=== PATIENT | female | born 1950 | race Caucasian/White ===

== ENCOUNTER → 2016-05-07 | Outpatient (CLI) | payer OTHER, MEDICARE ==
[~2016-05-07] MED LIST: AMLO-110 PO; ATOR10TA88 PO; ATV5 PO; FAMO20TA11 PO; FLUC10SU PO; FNTTP75 TD; LISI5TAB PO; METO-157 PO; MISCCAP80 PO; MULT-1027 PO; OPTIRAY 320 IV PRN; POLY335019 PO; PROC1TAB5 PO; THIA100T11 PO; morphine sulfate
--- NOTE | 2016-05-07 13:13 | DIAGNOSTIC IMAGING REPORT ---
ULTRASOUND OF THE CAROTID ARTERIES CLINICAL HISTORY: Head and neck cancer. COMPARISON STUDY: CT scan of the neck dated 01/21/2016. TECHNIQUE: Real-time, grayscale, and color Doppler sonography of the carotid arteries is performed. Images are reviewed in the transverse and longitudinal planes. FINDINGS: Blood pressures were not assessed. The carotid arteries are patent bilaterally and demonstrate antegrade flow. There is no significant atherosclerotic plaque seen. Normal doppler arterial waveforms are seen throughout. Velocity measurements are listed below. Common carotid peak systolic velocity (cm/sec): RIGHT: 74 LEFT: 83 ICA proximal peak systolic velocity (cm/sec): RIGHT: 80 LEFT: 71 ICA mid peak systolic velocity (cm/sec): RIGHT: 90 LEFT: 85 ICA distal peak systolic velocity (cm/sec): RIGHT: 87 LEFT: 94 ICA/CC peak systolic ratio: RIGHT: 1.2 LEFT: 1.1 Antegrade flow was shown in the vertebral arteries. The external carotid arteries are patent. IMPRESSION: 1. There is no sonographic evidence of hemodynamically significant stenosis in the right or left carotid arterial system. 2. Antegrade flow is shown in the vertebral arteries. Electronically signed by: Ayo Lott M.D. 05/07/2016 1:12 PM Dictated Date/Time: 05/07/2016 1:10 PM
--- NOTE | 2016-05-07 13:38 | DIAGNOSTIC IMAGING REPORT ---
CT HEAD COMBO CT DOSE: 1512.20 mGy.cm TECHNIQUE: Noncontrast images were obtained through the brain in the axial plane. The sequence was repeated following administration of 119 Optiray 320. HISTORY: TONGUE CA. NECK MASS COMPARISON: None. FINDINGS: No intra or extra-axial mass lesions are visualized. There is no CT evidence of acute cortical infarction. There is no evidence of midline shift. There is no acute hemorrhage. No calvarial fractures are visualized. There are minimal white matter hypodensities likely on a small vessel basis. There is no evidence of pathologic ventricular dilatation. There is no evidence of acute sinusitis Postcontrast images reveal no pathologically enhancing masses. IMPRESSION: No acute intracranial findings. No CT evidence of intracranial metastasis. Electronically signed by: Jay Han M.D. 05/07/2016 1:37 PM Dictated Date/Time: 05/07/2016 1:35 PM
--- NOTE | 2016-05-07 14:20 | DIAGNOSTIC IMAGING REPORT ---
CT SCAN OF THE NECK WITH IV CONTRAST CLINICAL HISTORY: Tongue cancer. Neck mass. COMPARISON STUDY: CT scan of the neck dated 01/21/2016. TECHNIQUE: Following the IV administration of 119 cc of Optiray 320, CT scan of the soft tissues of the neck was performed from the skull base to the upper chest. Images are reviewed in the axial, sagittal, and coronal planes. IV contrast was administered without complication. FINDINGS: Soft tissues and pharynx: Numerous surgical clips are present at the floor of the mouth. There is a large and heterogeneous mass lesion with foci of central necrosis identified in the left neck. There are numerous surgical clips in this region indicating previous neck dissection. The mass lesion extends from the level of C2 to the level of C5, and is located posterior to the body and angle of the mandible. There is extensive infiltration of the left-sided parapharyngeal fat with mild mass effect on the left pharyngeal soft tissues. This effaces the left vallecula. Abnormal soft tissue seen infiltrating along the course of the left sternocleidomastoid muscle. This significantly narrows the left internal jugular vein as image #287. The airway is widely patent. The epiglottis is normal. The vocal cords are symmetric. The prevertebral/retropharyngeal soft tissues are within normal limits. Lymphadenopathy: There is a large left-sided neck mass as above. No additional discrete surrounding cervical lymph nodes are identified. Thyroid: Normal in size and attenuation. Salivary glands: Surgical clips are noted in the left parotid gland. The parotid glands and left submandibular gland appear hyperemic. The right submandibular gland is not visualized. Brain parenchyma: The visualized brain parenchyma at the skull base is normal in appearance. Vascular structures: There is atherosclerotic calcification of the visualized thoracic aorta. The carotid arteries and right jugular veins are widely patent bilaterally. Skeletal structures: The skeletal structures are osteopenic. Imaged portions of the calvarium at the skull base are within normal limits. The cervical spine appears intact noting mild multilevel cervical spondylosis. No lytic or blastic lesions are seen. Orbits: The bony orbits are intact. Orbital contents are within normal limits. Sinuses and mastoids: There is trace mucosal thickening within the left maxillary antrum. The remaining paranasal sinuses are clear. The mastoid air cells are well pneumatized. Upper chest: Emphysematous change is present in the upper lobes. There is biapical scarring. Imaged upper lobe lung parenchyma is otherwise clear. Numerous surgical clips are seen in the superior mediastinum. IMPRESSION: 1. There are postoperative changes consistent with extensive left-sided neck dissection, as well as resection at the floor of the mouth. 2. There is a large and heterogeneous soft tissue mass with central necrosis identified in the left neck as detailed above. This infiltrates the left paravertebral soft tissues and causes mass effect on the pharynx. This is consistent with metastatic disease. The airway is patent. 3. Abnormal soft tissue is seen infiltrating along the course of the left sternocleidomastoid muscle, also likely representing metastasis.. 4. There is encasement with significant narrowing of the left internal jugular vein. The vessel remains patent. 5. No definite lesions are identified within the soft tissues of the right neck. 6. Advanced emphysema. Electronically signed by: Ayo Lott M.D. 05/07/2016 2:19 PM Dictated Date/Time: 05/07/2016 2:04 PM
== END | disposition home or self-care (01) ==
LOC: C.ULTR 12:13
PROVIDERS: ATTEND Radiology Radiation Oncology
DX: C02.3 Malignant neoplasm of anterior two-thirds of tongue, part unspecified (principal); R22.1 Localized swelling, mass and lump, neck; J43.9 Emphysema, unspecified

== ENCOUNTER → 2016-05-13 | Outpatient (CLI) | payer OTHER, MEDICARE ==
[~2016-05-13] MED LIST changes: -OPTIRAY 320 IV PRN
--- NOTE | 2016-05-13 13:55 | Discharge Instructions ---
Discharge Instructions Procedure Procedure Date: May 13, 2016. Reason for visit: L Neck Mass,Tongue Ca. Discharge Discharge Date: May 13, 2016. Discharge Diagnosis: same Instructions Activity Recommendations: No limitations Return to School/Work: no limitations Recommended Home Diet: Resume Previous Diet Provider Instructions: ACTIVITY RECOMMENDATIONS: * Rest today. * Resume regular activity in one day. MEDICATIONS: * May take Tylenol or Ibuprofen as needed for pain. DIET: * Resume previous diet. SPECIAL CARE INSTRUCTIONS: Call your doctor if: * Temperature above 101 degrees F. * Pain not relieved by pain medicine ordered. * Increased drainage or redness from incision. * Notify your doctor with any questions or concerns. Call your doctor or go to the nearest Emergency Department if you experience: * Increased chest pain or shortness of breath. FOLLOW UP VISIT: Follow-up with Referring Physician as scheduled. Allergies Coded Allergies: Albuterol (Verified Allergy, Mild, Trouble Breathing, Hallucinations, Rapid HR , 04/06/16) Codeine (Verified Adverse Reaction, Mild, Severe Nausea , 04/06/16) Velia Tineo Recommendations: Call your doctor if: * Temperature above 101 degrees * Pain not relieved by pain medicine ordered * There is increased drainage or redness from any incision * You have any unanswered questions or concerns. Your Doctors Instructions noted above were prepared by provider King Murguia. Patient Signature Section: Patient Instructions Signature Page Nazario Desir Patient (or Guardian) Signature/Date: I have read and understand the instructions given to me by my caregivers. Caregiver/RN/Doctor Signature/Date: The above-named patient and/or guardian has received patient instructions on this date. + Original Patient Signature Page (only) stays with chart. Please make copy for patient.
--- NOTE | 2016-05-13 13:59 | DIAGNOSTIC IMAGING REPORT ---
ULTRASOUND-GUIDED FINE-NEEDLE ASPIRATION OF A LEFT NECK MASS HISTORY: Left NECK MASS COMPARISON: Neck CT 05/07/2016. PROCEDURE: Written informed consent was obtained. The neck was prepped and draped in the usual sterile fashion. 1% lidocaine was used for local anesthesia. A total of one pass using a 25-gauge needle was made through the left neck mass under ultrasound guidance. Specimens were given to the on-site pathologist who determined adequate tissue for diagnosis. The patient tolerated the procedure well. There were no immediate locations. IMPRESSION: Successful ultrasound-guided fine-needle aspiration of a left neck mass. Electronically signed by: King Murguia M.D. 05/13/2016 1:57 PM Dictated Date/Time: 05/13/2016 1:57 PM
== END | disposition home or self-care (01) ==
LOC: C.ULTR 11:45
PROVIDERS: ATTEND Radiology Radiation Oncology
DX: R22.1 Localized swelling, mass and lump, neck (principal); C02.3 Malignant neoplasm of anterior two-thirds of tongue, part unspecified

== ENCOUNTER → 2016-07-12 | Outpatient (CLI) | payer OTHER, MEDICARE ==
[~2016-07-12] MED LIST changes: +ATOR10TA82 PO; -ATOR10TA88 PO; +OPTIRAY 320 IV PRN
--- NOTE | 2016-07-12 13:24 | DIAGNOSTIC IMAGING REPORT ---
CT neck with intravenous contrast HISTORY: TONGUE CANCER TECHNIQUE: Multiaxial CT images of the neck were performed following the use of intravenous contrast. COMPARISON STUDY: CT neck 05/07/2016. FINDINGS: Postoperative changes consistent with partial resection of the left tongue and radical dissection within the mouth floor and left neck. Mild emphysema. Surgical clips within the mediastinum. The thyroid gland enhances normally. The carotid and vertebral arteries are patent. The internal jugular veins appear patent. The visualized brain parenchyma is unremarkable. The dominant necrotic left submandibular/neck lymph node has decreased in size. This currently measures 3.8 x 2.6 cm, previous measuring 4.8 x 3.2 cm. Abnormal enhancing soft tissue nodularity along the lingual surface of the right hemimandible/mouth floor has also improved. A right submandibular lymph node has decreased in size. This currently measures 9 mm, previous measuring 11 mm. Mild effacement of the left vallecula is again noted. Diminished mass effect along the hypopharynx. No significant airway compromise. Mild anterior and left oropharyngeal mucosal thickening has also slightly improved. Asymmetric thickening of the left sternocleidomastoid muscle has improved. Abnormal left anterior cervical soft tissue surrounding the surgical clips at the level of the thyroid cartilage has also improved. This measures up to 12 mm in thickness, previously measuring 15 mm. The enhancement associated with this soft tissue abnormality has almost completely resolved. No suspicious lytic or blastic osseous lesions. IMPRESSION: Interval improvement in the metastatic disease within the mouth floor and neck as described above. Electronically signed by: King Murguia M.D. 07/12/2016 1:22 PM Dictated Date/Time: 07/12/2016 1:11 PM
== END | disposition home or self-care (01) ==
LOC: C.CTS 12:45
PROVIDERS: ATTEND Internal Medicine Hematology
DX: B37.2 Candidiasis of skin and nail (principal); C02.9 Malignant neoplasm of tongue, unspecified; C77.0 Secondary and unspecified malignant neoplasm of lymph nodes of head, face and neck

== ENCOUNTER → 2016-07-21 | Outpatient (CLI) | payer OTHER, MEDICARE ==
[~2016-07-21] MED LIST changes: -OPTIRAY 320 IV PRN
[2016-07-21 14:34] VITALS: BP 100/69; PULSE 96; TEMP 36.4; O2SAT 93
--- NOTE | 2016-07-21 16:32 | Radiation Oncology Follow-Up ---
Radiation Oncology Follow-Up Date of Visit Jul 21, 2016. (Joyce Babin PA-C) Reason For Visit One-month follow-up (Joyce Babin PA-C) Radiation Completion Date 06/23/16 (Joyce Babin PA-C) Diagnosis (1) Cancer of oral cavity Status: Acute Onset Date: 03/12/2016 Location: left tongue Histology Subtype: squamous cell carcinoma Stage: IV Permanent Comment: STAGING: Left oral tongue, SCC, p16 negative, pT2N2c (+CHET) , stage MARISSA TREATMENT: 1. Biopsy - 01/02/2016 2. Near-total glossectomy, bilateral modified radical neck dissection - 2015 3. Initiation of radiation and chemotherapy and finding of enlarging neck mass biopsy 05/13/2016 revealing metastatic squamous cell carcinoma. 4. Status post completion of combined radiation and chemotherapy 06/23/2016 received 7000 cGy Chemotherapy comprised of Erbitux Last Edited By: Joyce Babin on Jul 05, 2016 16:35 (Joyce Babin PA-C) History of Present Illness Ms. 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 The patient has been doing relatively well until more recently she did notice a persistent sore in the left side of her tongue. The patient was referred to Dr. Brooks who examined her on 2015 and noted "Oral Cavity: The tongue was indurated for 2.5 cm. There was a 4 x 4 mm exophytic area noted on the left anterior lateral tongue that was firm to palpation. About 1 cm posterior there was a 5 x 5 mm ulcerated cratered area. Dentition: Teeth in good repair. There were no palpable lymph nodes." The patient did have a biopsy during the same visit of the anterior lateral tongue the left lateral tongue which came back consistent with intermediate grade squamous cell carcinoma that was p16 negative. The patient subsequently had a PET/CT scan on 01/15/2016 which revealed a hypermetabolic tongue malignancy with no evidence of cervical lymph node involvement. The patient subsequently had a CT neck on 01/21/2016 which showed a midline and left lateral tongue mass as well as right neck level III metastatic adenopathy. The patient subsequently sought out a second opinion consultation and was seen by Dr. Moreira at [facility] in [place], [place]. Dr. Moreira brought the patient to the operating room on 03/02/2016 for a near- total glossectomy and bilateral modified radical neck dissection. The patient also had a flap graft placement at the same time. At that time of his operation , Dr. Moreira noted that there was a large left tongue tumor which extended well across midline to the right tongue however the base of tongue was clear on the right side with minimal involvement on the left base of tongue. Pathology revealed a multifocal squamous cell carcinoma involving the left anterior tongue. There were 2 foci of tumor measuring 3.8 cm and 2.2 cm in the greatest dimensions. The tumor thickness was 1.7 cm as measured on slide. There was no evidence of lymphovascular space invasion however there was evidence of perineural invasion. The margins were negative. The tumor was a grade 2. Lymph node levels I - IV on the left side were all negative for metastatic carcinoma. There was one positive deposit of metastatic from a cell carcinoma in a right level III lymph node that measured 1.2 cm in the greatest dimension with focal extranodal extension. In the same lymph node there was an additional tumor deposit in the adipose tissue. In total, the patient had 34 lymph nodes removed bilaterally. The patient was stages pathologic T2N2c with noted focal extranodal extension. Following the completion of the procedure, the patient did have a jejunostomy tube placed for feeding. We are now being asked to evaluate the patient for consideration of adjuvant radiation therapy. Overall, the patient is doing relatively well. She has healed up well from surgery. She does continue to eat and also use the feeding tube. She has no other significant complaints at this point. Decision was to treat with combined radiation and chemotherapy. The radiation was completed 06/23/2016. She received 7000 cGy. Chemotherapy comprised of Erbitux. (Joyce Babin PA-C) Interim History Over the past month she has had steady improvement in the soreness of her mouth. She now gives her pain level of 4. She does continue on a fentanyl patch for pain control. There are ongoing issues with her J-tube. Especially occurs at night when there is leaking around the tube. She then will have skin irritation under the above further holds the tube in place. There previously discussed this with Dr. Guillaume. There was discussion of changing the PEG tube. This was described as an interventional radiology technique. This fatigue continues but is improved. The mass of the neck is also steadily improving. Dr. Mo at medical oncology ordered a recheck CT scan which did show improvement in the mass of the neck. There previously followed in [place]. He would like to obtain a local ENT specialist. She also has some itching of the lower extremities and small amount of dry skin and rash. (Joyce Babin PA-C) Allergies Coded Allergies: Albuterol (Verified Allergy, Mild, Trouble Breathing, Hallucinations, Rapid HR , 04/06/16) Codeine (Verified Adverse Reaction, Mild, Severe Nausea , 04/06/16) Home Medications Scheduled Amlodipine (Norvasc), 5 MG PO DAILY Atorvastatin (Lipitor), 1 TAB PO DAILY Famotidine (Pepcid), 20 MG PO BID Fentanyl (Fentanyl), 1 PATCH TD Q48H Lisinopril (Prinivil), 1 TAB PO DAILY Lorazepam (Ativan *), 1.5 MG PO HS Metoclopramide (Reglan), 10 MG PO DAILY Multiple Vitamin (Multi Vitamin), 5 ML PO DAILY Probiotic Product (Probiotic), 0.5 CAP PO DAILY Prochlorperazine Maleate (Compazine), 1 TAB PO Q6 Thiamine Hcl (Vitamin B-1), 100 MG PO DAILY [morphine sulfate ], 0.8 ML Q4H Scheduled PRN Polyethylene Glycol 3350 (Miralax), 17 GM PO DAILY PRN for Constipation Review of Systems Gastrointestinal: Symptoms: Nausea GI Comments: Waves of nausea;antiemetic helps with that; Oral: Symptoms: No Problems, Saliva amt. Increased Other Oral Symptoms: States does cough w/drinking water, but feels this is less; Respiratory: Symptoms: WNL Other Respiratory: AM cough to clear thick mucus, but this is also improving ; Urinary: Symptoms: WNL Skin: Symptoms: Faint Erythema Other Skin Symptoms: "rash" on sacral area and both lower legs. (Joyce Babin PA-C) Physical Exam Vital Signs Date Time Temp Pulse Resp B/P Pulse Ox O2 Delivery O2 Flow Rate FiO2 07/21/16 14:34 36.4 96 12 100/69 93 Pain: Side: Left Patient Pain Scale: 0 - 10 Initial Pain Intensity: 5.0 Additional Comments: Rash improves but doesn't ever resolve; Fatigue: Mild Eyes: normal inspection ENT: normal ENT inspection, hearing grossly normal, TMs normal, + pertinent finding (resolving mucositis. Neck shows hyperpigmentation and dry desquamation.) Neck: thyroid normal, + pertinent finding (mass of the left neck with improvement in size) Respiratory/Chest: lungs clear, no respiratory distress, no accessory muscle use Cardiovascular: regular rate, rhythm, no gallop, no murmur Abdomen: non tender, soft, + pertinent finding (mild erythema of the skin under the bumper for the J-tube) Extremities: non-tender, + pertinent finding (few areas of erythema and dry skin of the anterior lower extremities) Neurologic/Psychiatric: no motor/sensory deficits, alert, normal mood/affect (Joyce Babin PA-C) Additional Studies Patient: FABIAN MURRY Address1: [address] [place] [address] [facility] Rec: [id number] Address2: Acct ID: [id number] [facility] Zip: [place] [address] Date: 1950 Sex: F Room/Bed: Ref Phy: Mei Ortiz SC: C.CTS Att Phy: Elmer Mo M.D. Report #: [id number] [place]ash[place] Phy: Mei Ortiz Test: NCKW Admit Phy: Training Mgr: MANI Interpreting Phy: King Murguia MD Diagnosis: TOUNGE CA Ordering Phy: Elmer Mo M.D. Service Date: 07/12/16 Admit Date: 07/12/16 MNE: [id number] CONF: DICTATED BY: King Murguia M.D.]] CC: Mei Ortiz Nilesh A., M.D. Endcc: [~ rep ct add3]] CT neck with intravenous contrast HISTORY: TONGUE CANCER TECHNIQUE: Multiaxial CT images of the neck were performed following the use of intravenous contrast. COMPARISON STUDY: CT neck 05/07/2016. FINDINGS: Postoperative changes consistent with partial resection of the left tongue and radical dissection within the mouth floor and left neck. Mild emphysema. Surgical clips within the mediastinum. The thyroid gland enhances normally. The carotid and vertebral arteries are patent. The internal jugular veins appear patent. The visualized brain parenchyma is unremarkable. The dominant necrotic left submandibular/neck lymph node has decreased in size. This currently measures 3.8 x 2.6 cm, previous measuring 4.8 x 3.2 cm. Abnormal enhancing soft tissue nodularity along the lingual surface of the right hemimandible/mouth floor has also improved. A right submandibular lymph node has decreased in size. This currently measures 9 mm, previous measuring 11 mm. Mild effacement of the left vallecula is again noted. Diminished mass effect along the hypopharynx. No significant airway compromise. Mild anterior and left oropharyngeal mucosal thickening has also slightly improved. Asymmetric thickening of the left sternocleidomastoid muscle has improved. Abnormal left anterior cervical soft tissue surrounding the surgical clips at the level of the thyroid cartilage has also improved. This measures up to 12 mm in thickness, previously measuring 15 mm. The enhancement associated with this soft tissue abnormality has almost completely resolved. No suspicious lytic or blastic osseous lesions. IMPRESSION: Interval improvement in the metastatic disease within the mouth floor and neck as described above. Electronically signed by: King Murguia M.D. 07/12/2016 1:22 PM Dictated Date/Time: 07/12/2016 1:11 PM (Joyce Babin PA-C) Assessment & Plan Plan: Patient is also seen and examined by Dr. Mo. The patient navigator from [employer] was called. She is going to set up an ENT referral as well as evaluation of the J-tube. Possible replacement of the tube. I recommended she use Aquaphor to the areas of hyperpigmented and dry skin. She'll also apply this to the dry skin of the lower extremities. Continue follow-up with Dr. Mo in medical oncology. Recheck scanning per Dr. Mo. 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 We asked her to return to our office in 6 months. (Joyce Babin PA-C) I agree with note created by Joyce Babin PA-C. I reviewed the patient's chart and information with her. I have examined and evaluated the patient. I reviewed relevant clinical information and answered the patient's and/or family' s questions. (Veeral. Mo MD) Total Time In Follow-Up I spent 20 minutes speaking to the patient about performing examination. I spent 15 minutes reviewing information and completing this note. (Joyce Babin PA-C) I spent 15 minutes examining and counseling the patient. (Veeral. Mo MD) Copy To Mei Ortiz; Elmer Mo M.D.
== END | disposition home or self-care (01) ==
LOC: C.ONC 13:57
PROVIDERS: ATTEND Physician Assistant Medical
DX: Z08 Encounter for follow-up examination after completed treatment for malignant neoplasm (principal); Z92.3 Personal history of irradiation; Z85.819 Personal history of malignant neoplasm of unspecified site of lip, oral cavity, and pharynx